=== PATIENT | male | born 1995 | race American Indian/Alaskan Native ===

== ENCOUNTER 2018-12-24 01:40 | Emergency (ER) | payer OTHER ==
--- NOTE | 2018-12-24 02:35 | Emergency Department Report ---
ED Male HPI - General Chief complaint: Medical Clearance Stated complaint: POSSIBLE STD Time Seen by Provider: 12/24/18 02:28 Source: patient Mode of arrival: Ambulatory Limitations: No Limitations - History of Present Illness Initial comments: Patient is a 23-year-old male who presents to the emergency department with complaints of penile itching for the past few days. He states he has also noticed a bump on his penis. He denies any dysuria, pain in the testicles, swelling of the testicles, urinary symptoms. He states he was diagnosed with ac qagan tayagungin renal failure at [facility] and has a suprapubic in place and states it comes on January 11. - Related Data Previous Rx's Medication Instructions Recorded Last Taken Type Acyclovir [Zovirax Tab] 400 mg PO TID 7 Days #21 tab 12/24/18 Unknown Rx Ciprofloxacin HCl [Ciprofloxacin 250 mg PO BID 10 Days #20 tablet 12/24/18 Unknown Rx TAB] ED Review of Systems ROS: Stated complaint: POSSIBLE STD Other details as noted in HPI Comment: All other systems reviewed and negative ED Past Medical Hx - Past Medical History Previous Medical History?: Yes Hx Hypertension: Yes Additional medical history: Kidney Pblms, banerjee - Surgical History Past Surgical History?: No - Social History Smoking Status: Current Every Day Smoker Substance Use Type: Marijuana - Medications Home Medications: Home Medications Medication Instructions Recorded Confirmed Last Taken Type Acyclovir [Zovirax Tab] 400 mg PO TID 7 Days #21 tab 12/24/18 Unknown Rx Ciprofloxacin HCl [Ciprofloxacin 250 mg PO BID 10 Days #20 tablet 12/24/18 Unknown Rx TAB] ED Physical Exam - General Limitations: No Limitations General appearance: alert, in no apparent distress - Head Head exam: Present: atraumatic, normocephalic - Eye Eye exam: Present: normal appearance - ENT ENT exam: Present: mucous membranes moist - GI/Abdominal GI/Abdominal exam: Present: other (suprapubic catheter is clean, dry, intact) - exam: Present: other (small vesicles to the ventral surface of the penile shaft, beam sealer: KADI Saravia). Absent: testicular tenderness, urethral discharge, scrotal swelling - Neurological Exam Neurological exam: Present: alert, oriented X3 - Psychiatric Psychiatric exam: Present: normal affect, normal mood - Skin Skin exam: Present: warm, dry, intact ED Course Vital Signs 12/24/18 12/24/18 01:46 04:37 Temperature 98.4 F Pulse Rate 68 67 Respiratory 18 16 Rate Blood Pressure 144/67 Blood Pressure 137/71 [Right] O2 Sat by Pulse 100 99 Oximetry ED Medical Decision Making - Lab Data Lab Results 12/24/18 Range/Units 03:02 Urine Color Yellow (Yellow) Urine Turbidity Cloudy (Clear) Urine pH 6.0 (5.0-7.0) Ur Specific [place] 1.019 (1.003-1.030) Urine Protein 100 mg/dl (Negative) mg/dL Urine Glucose (UA) Neg (Negative) mg/dL Urine Ketones Tr (Negative) mg/dL Urine Blood Mod (Negative) Urine Nitrite Pos (Negative) Urine Bilirubin Neg (Negative) Urine Urobilinogen 2.0 (<2.0) mg/dL Ur Leukocyte Esterase Lg (Negative) Urine WBC (Auto) > 182.0 H (0.0-6.0) /HPF Urine RBC (Auto) 82.0 (0.0-6.0) /HPF U Epithel Cells (Auto) 1.0 (0-13.0) /HPF Urine Bacteria (Auto) 3+ (Negative) /HPF Urine WBC Clumps 3+ /HPF Urine Mucus 3+ /HPF - Medical Decision Making Patient is a 23-year-old male who presents to the emergency department with complaints of penile itching for the past few days. He states he has also noticed a bump on his penis. He denies any dysuria, pain in the testicles, swelling of the testicles, urinary symptoms. He states he was diagnosed with acute renal failure at [facility] and has a suprapubic in place and states it comes on January 11. VSS. on exam: suprapubic catheter is clean, dry, intact, yellow urine present, small vesicles to the ventral surface of the penile shaft, beam sealer: KADI Saravia. UA with many WBCs, large leukocyte esterase, and moderate nitrites. G/C sent. pt given azithromycin and ceftriaxone in the ED. vesicles on the penile shaft could represent a herpes gentalis, pt given prescription for acyclovir. pt also given prescription for ciprofloxacin due to UTI. discussed with pt to please follow up with his doctor who placed supraupubic catheter due to infection in the next 2-3 days and discuss if they want to change out his suprapubic catheter. advised to take all medication as prescribed. discussed to follow-up with medical records in one week for results of G/C. Please follow-up with the health department or a primary care doctor for STD testing such as HIV, herpes, syphilis, etc. Return to the emergency room for any new or worsening symptoms. Please abstain from sexual intercourse for the next 10 days. Have partner tested and treated as well. - Differential Diagnosis UTI, STD Critical care attestation.: If time is entered above; I have spent that time in minutes in the direct care of this critically ill patient, excluding procedure time. ED Disposition Clinical Impression: Itching of penis, Lesion of penis UTI (urinary tract infection) Qualifiers: Urinary tract infection type: acute cystitis Hematuria presence: with hematuria Qualified Code(s): N30.01 - Acute cystitis with hematuria Disposition: TO HOME OR SELFCARE Is pt being admited?: No Does the pt Need Aspirin: No Condition: Stable Instructions: Sexually Transmitted Diseases (ED), Safe Sex (ED), Urinary Tract Infection in Men (ED) Additional Instructions: Please take all medication as prescribed. Please follow-up with medical records in one week for results of your tests. Please follow-up with the health de partment or a primary care doctor for STD testing such as HIV, herpes, syphilis, etc. Return to the emergency room for any new or worsening symptoms. Please abstain from sexual intercourse for the next 10 days. Have partner tested and treated as well. Prescriptions: Ciprofloxacin HCl [Ciprofloxacin TAB] 250 mg PO BID 10 Days #20 tablet Acyclovir [Zovirax Tab] 400 mg PO TID 7 Days #21 tab Referrals: EDOUARD STEPHENS MD [Primary Care Provider] - 2-3 Days [facility] [Outside] - 2-3 Days [facility] [place] [facility] [place]] - 2-3 Days [facility] [Outside] - 2-3 Days Time of Disposition: 04:16 Print Language: CAMBODIAN
[2018-12-24 03:35] LABS: Bacteria,Urine 3+ /HPF (Negative); Bilirubin,Urine NEG (Negative); Blood,Urine MOD (Negative); Color,Urine Yellow (Yellow); Mucus,Urine 3+ /HPF
[2018-12-24 03:40] LABS: WBC,Urine > 182.0 /HPF (0.0-6.0)
[2018-12-24] MEDS ORDERED: ROCEPHIN IM ONE (03:46)
[2018-12-24] MEDS ORDERED: XYLOCAINE 1% MPF 5 mL INFILTRATI ONE (03:46)
[2018-12-24] MEDS ORDERED: ZITHROMAX PO ONE (03:46)
[2018-12-24 04:38] VITALS: BP 137/71
== END 2018-12-24 04:38 | disposition home or self-care (01) ==
LOC: ED 01:40
DX: N30.01 Acute cystitis with hematuria (principal)
CPT/HCPCS: 81001; 87076; 87086; 87186; 87591; 96372; 99283; J0696

== ENCOUNTER 2019-03-29 09:34 | Emergency (ER) | payer SELFPAY ==
--- NOTE | 2019-03-29 09:48 | Emergency Department Report ---
ED Abdominal Pain HPI - General Chief Complaint: Tube Replacement Stated Complaint: BACK/ABD PAIN Time Seen by Provider: 03/29/19 09:45 Source: EMS Mode of arrival: Stretcher Limitations: No Limitations - History of Present Illness Initial Comments: 24 YO COMES TO ER WITH INC ABD PAIN TODAY. IN OCTOBER OF THIS YEAR HE WENT INTO ARF AND HAS HAD A SUPRAPUBIC CATHETER. PLACED AT [place]. THE CATHETER FELL OUT 03-16-19 HE REPORTS HE WENT TO [facility] SINCE THAT TIME AND THEY TOLD HIM EVERYTHING WAS OK. HE SEES DR HUNG (?SP), UROLOGY, WHO HE CAN NOT SEE FOR FINANCIAL REASONS PT REPORTS URINATING FROM PENIS BUT ALSO REPORTS SMALL AMOUNT OF LEAKAGE FROM THE SUPRAPUBIC CATHETER SITE. HE STATES HE HAS HAD CILLS. PMH HTN- NO MEDS, HAD RX FOR 30 DAYS ONLY PSH SUPRAPUBIC CATHETER CIG OCC ETOH THC Complaint: abdominal pain -: Gradual, week(s) Location: suprapubic Radiation: none Migration to: no migration Severity: moderate Quality: aching Consistency: constant Improves With: nothing Context: other Associated Symptoms: chills - Related Data Previous Rx's Medication Instructions Recorded Last Taken Type Ciprofloxacin HCl [Ciprofloxacin 500 mg PO Q12HR #20 tab 03/29/19 Unknown Rx TAB] Allergies Allergy/AdvReac Type Severity Reaction Status Date / Time No Known Allergies Allergy Unverified 03/29/19 10:15 ED Review of Systems ROS: Stated complaint: BACK/ABD PAIN Other details as noted in HPI Comment: All other systems reviewed and negative Gastrointestinal: as per HPI, abdominal pain. denies: nausea, vomiting Genitourinary: as per HPI. denies: urgency, dysuria, frequency, hematuria, discharge, testicular pain, testicular mass Musculoskeletal: denies: back pain Skin: denies: rash Neurological: as per HPI. denies: headache ED Past Medical Hx - Past Medical History Hx Hypertension: Yes Hx Renal Disease: Yes (ARF 2019 WITH SUPRAPUBIC CATHETER) - Surgical History Past Surgical History?: Yes Additional Surgical History: SUPRAPBUBIC CATH - Family History Family history: no significant - Social History Smoking Status: Current Every Day Smoker Substance Use Type: Alcohol, Marijuana - Medications Home Medications: Home Medications Medication Instructions Recorded Confirmed Last Taken Type Ciprofloxacin HCl [Ciprofloxacin 500 mg PO Q12HR #20 tab 03/29/19 Unknown Rx TAB] ED Physical Exam - General Limitations: No Limitations General appearance: alert - Head Head exam: Present: normocephalic - Eye Eye exam: Present: PERRL, EOMI - ENT ENT exam: Present: mucous membranes moist - Neck Neck exam: Present: normal inspection - Respiratory Respiratory exam: Present: normal lung sounds bilaterally - Cardiovascular Cardiovascular Exam: Present: regular rate - GI/Abdominal GI/Abdominal exam: Present: soft, distended, normal bowel sounds, other (normal BM this am). Absent: tenderness, guarding, rebound, rigid, diminished bowel sounds, hyperactive bowel sounds, hypoactive bowel sounds, organomegaly, mass, bruit, pulsatile mass, hernia - Expanded GI/Abdominal Exam Expanded GI/Abdominal exam: Present: other (no cva tenderness). Absent: psoas sign, obturator sign, heel tap sign, Nava's sign, Rovsing's sign, tenderness at Mcburney's Point, ascites - Rectal Rectal exam: Present: deferred - Extremities Exam Extremities exam: Present: normal inspection. Absent: pedal edema - Back Exam Back exam: Present: normal inspection - Neurological Exam Neurological exam: Present: alert, oriented X3, CN II-XII intact - Psychiatric Psychiatric exam: Present: normal affect, normal mood - Skin Skin exam: Present: warm, dry, intact ED Course Vital Signs 03/29/19 03/29/19 09:52 10:09 Temperature 98.4 F 99.1 F Pulse Rate 85 88 Respiratory 16 14 Rate Blood Pressure 148/98 Blood Pressure 142/85 [Right] O2 Sat by Pulse 97 98 Oximetry - Reevaluation(s) Reevaluation #1: CASE DISCUSSED WITH DR BRENNAN PT KNOWN TO [facility] 03/29/19 14:11 [phone] URO AT [facility] CONTACTED HE STATES IT IS OK TO DC PT TO HOME WITH AM FOLLOW UP 1420 PT HAS BEEN UPDATED ON PLAN OF CARE AND KNOWS THAT HE NEEDS TO SEE THE MD IN AM WILL DC ON CIPRO FOR UTI. ED Medical Decision Making - Lab Data Result diagrams: 03/29/19 09:55 03/29/19 09:55 - Radiology Data Radiology results: report reviewed, image reviewed - Medical Decision Making Labs 03/29/19 03/29/19 03/29/19 09:52 09:55 09:55 WBC 15.2 H RBC 4.66 Hgb 13.9 Hct 42.0 MCV 90 MCH 30 MCHC 33 RDW 12.7 L Plt Count 146 Lymph % (Auto) 4.4 L [place] % (Auto) 8.8 H Eos % (Auto) 0.0 Baso % (Auto) 0.2 Lymph # 0.7 L [place] # 1.3 H Eos # 0.0 Baso # 0.0 Seg Neutrophils % 86.6 H Seg Neutrophils # 13.1 H Sodium 139 Potassium 3.4 L Chloride 100.1 Carbon Dioxide 19 L Anion Gap 23 BUN 24 H Creatinine 2.3 H Estimated GFR 42 BUN/Creatinine Ratio 10 Glucose 103 H POC Glucose Lactic Acid Calcium 8.9 Phosphorus 2.70 Total Bilirubin 0.60 AST 41 H ALT 48 Alkaline Phosphatase 91 Total Protein 7.8 Albumin 4.1 Albumin/Globulin Ratio 1.1 Urine Color [place] Urine Turbidity Turbid Urine pH 7.0 Ur Specific [place] 1.013 Urine Protein 100 mg/dl Urine Glucose (UA) Neg Urine Ketones Tr Urine Blood Mod Urine Nitrite Pos Urine Bilirubin Neg Urine Urobilinogen < 2.0 Ur Leukocyte Esterase Mod Urine WBC (Auto) > 182.0 H Urine RBC (Auto) 10.0 Urine Bacteria (Auto) 2+ Urine Mucus Few 03/29/19 03/29/19 10:46 11:27 WBC RBC Hgb Hct MCV MCH MCHC RDW Plt Count Lymph % (Auto) [place] % (Auto) Eos % (Auto) Baso % (Auto) Lymph # [place] # Eos # Baso # Seg Neutrophils % Seg Neutrophils # Sodium Potassium Chloride Carbon Dioxide Anion Gap BUN Creatinine Estimated GFR BUN/Creatinine Ratio Glucose POC Glucose 100 Lactic Acid 0.90 Calcium Phosphorus Total Bilirubin AST ALT Alkaline Phosphatase Total Protein Albumin Albumin/Globulin Ratio Urine Color Urine Turbidity Urine pH Ur Specific [place] Urine Protein Urine Glucose (UA) Urine Ketones Urine Blood Urine Nitrite Urine Bilirubin Urine Urobilinogen Ur Leukocyte Esterase Urine WBC (Auto) Urine RBC (Auto) Urine Bacteria (Auto) Urine Mucus Vital Signs 03/29/19 03/29/19 09:52 10:09 Temperature 98.4 F 99.1 F Pulse Rate 85 88 Respiratory 16 14 Rate Blood Pressure 148/98 Blood Pressure 142/85 [Right] O2 Sat by Pulse 97 98 Oximetry SUPRAPUBIC CATHETER SITE NOTED, HEALED WITH A SCAB BUT PT STATES HE IS LEAKING URINE FROM THE SITE. HE ALSO URINATES FROM PENIS. LABS NOTED UA NOTED WE DO NOT HAVE PRIOR CR ON THIS PT; BUT HE REPORTS ARF SINCE OCTOBER OF THIS YEAR K NORMAL NS/ROCHEPHIN IV GIVEN CT NOTED DISCUSSED WITH JENNIFER SINGH DR CONTACTED VIA THE [facility] I DISCUSSED WITH HIM THE PT PRESENTATION, CR, AND CT FINDINGS HE STATES THE PT CAN BE DC HOME AND HE WILL SEE HIM IN THE OFFICE IN THE AM. DR BRENNAN AWARE DISCUSSED PLAN OF CARE WITH PT AND HE AND FAMILY AGREE THEY WILL GO TO URO IN AM FOR FOLLOW UP. THEY UNDERSTAND THAT THIS CAN BE SERIOUS IF NOT TREATED. PT BEING DC HOME ON CIPRO FOR UTI. HAD STI TREATMENT AT LAST VISIT HERE/HE HAS NO PENILE DISCHARGE DC HOME WITH FAMILY AND CLEARLY DELINEATED FOLLOW UP PLAN - Differential Diagnosis RO BLADDER OUTLET OBSTRUCTION/UTI/ARF Critical care attestation.: If time is entered above; I have spent that time in minutes in the direct care of this critically ill patient, excluding procedure time. ED Disposition Clinical Impression: Urinary retention, Bladder outlet obstruction, ARF (acute renal failure), UTI (urinary tract infection) Disposition: DC-01 TO HOME OR SELFCARE Is pt being admited?: No Does the pt Need Aspirin: No Condition: Stable Instructions: Urinary Retention in Men (ED) Additional Instructions: call urology in AM [phone] in the AM HE WILL SEE YOU IN THE OFFICE ANTIBIOTIC ORDERED TODAY TYLENOL FOR PAIN Prescriptions: Ciprofloxacin HCl [Ciprofloxacin TAB] 500 mg PO Q12HR #20 tab Referrals: PRIMARY CAREMD [Primary Care Provider] - 3-5 Days WALTER HOLLEY MD [Staff Physician] - 3-5 Days Time of Disposition: 14:09
[2019-03-29 10:24] VITALS: BP 142/85
[2019-03-29 10:33] LABS: Bacteria,Urine 2+ /HPF (Negative); Bilirubin,Urine NEG (Negative); Blood,Urine MOD (Negative); Color,Urine Amber (Yellow); Mucus,Urine FEW /HPF; Urobilinogen,Urine < 2.0 mg/dL (<2.0)
[2019-03-29 10:37] LABS: WBC,Urine > 182.0 /HPF (0.0-6.0)
[2019-03-29 10:44] LABS: Basophils % (Auto) 0.2 % (0.0-1.8); Hemoglobin 13.9 gm/dl (11.8-15.2); Lymphocytes # (Auto) 0.7 K/mm3 (1.2-5.4); Lymphocytes % (Auto) 4.4 % (13.4-35.0); Mean Corpuscular HGB Conc 33 % (32-34); Mean Corpuscular Volume 90 fl (84-94); Monocytes # (Auto) 1.3 K/mm3 (0.0-0.8); Monocytes % (Auto) 8.8 % (0.0-7.3); Platelet Count 146 K/mm3 (140-440); Red Blood Count 4.66 M/mm3 (3.65-5.03); Red Cell Distribution Width 12.7 % (13.2-15.2)
[2019-03-29] MEDS ORDERED: SODIUM CHLORIDE 0.9% 1000 ML 1,000 ML IV ONE (10:44)
[2019-03-29] MEDS ORDERED: cefTRIAXone/NS 1 GM/50 ML 1 GM/50 ML BAG IV ONE (10:44)
[2019-03-29 11:10] LABS: Albumin 4.1 g/dL (3.9-5); Calcium 8.9 mg/dL (8.4-10.2)
--- NOTE | 2019-03-29 13:17 | Cat Scan Report ---
CT ABDOMEN AND PELVIS WITHOUT CONTRAST HISTORY: suprapubic pain. Bilateral flank pain for 2 days. COMPARISON: None. TECHNIQUE: Axial CT images were obtained through the abdomen and pelvis without IV contrast. Sagittal and coronal reformatted images. All CT scans at this location are performed using CT dose reduction for ALARA by means of automated exposure control. FINDINGS: CT ABDOMEN: Lung Bases: Clear. Liver: No significant abnormality. Biliary: No significant abnormality. The gallbladder is contracted. Spleen: No significant abnormality. Unenlarged. Pancreas: No significant abnormality. Adrenals: No significant abnormality. Kidneys: The bladder is markedly distended. There is moderate to severe bilateral hydronephrosis. Wm dder outlet obstruction should be considered. No evidence for focal renal lesion or nephrolithiasis. Lymphatics: No lymphadenopathy. Vasculature: No significant abnormality. Bowel/Peritoneum: No significant abnormality. No free air. No free fluid. Normal appendix. CT PELVIS: : Distended bladder. A few small bladder diverticula are noted. Osseous Structures: No significant abnormality. Additional Findings: None IMPRESSION: Distended bladder and bilateral hydronephrosis suggestive of bladder outlet obstruction. Signer Name: Joshua Kearney Jr, MD Signed: 03/29/2019 1:13 PM Workstation Name: [id number]
== END 2019-03-29 14:43 | disposition home or self-care (01) ==
LOC: ED 09:34
DX: N39.0 Urinary tract infection, site not specified (principal); R33.0 Drug induced retention of urine; N32.0 Bladder-neck obstruction; N17.9 Acute kidney failure, unspecified; F17.200 Nicotine dependence, unspecified, uncomplicated; F12.10 Cannabis abuse, uncomplicated; I10 Essential (primary) hypertension
CPT/HCPCS: 36415; 74176; 80053; 81001; 82140; 82962; 84100; 85025; 87040; 87086; 96365; 99284; J0696; J7030